=== PATIENT | female | born 1965 | race Caucasian/White ===

== ENCOUNTER 2018-01-09 08:43 | Day surgery (SDC) | payer BC ==
[2018-01-05 10:28] VITALS: BMI 28.3
[~2018-01-09 08:43] MED LIST: LACTATED RINGERS 1,000 ML IV SCH; LIDOCAINE 1% 20 ML VIAL (10MG/ML) FOR IV START INTRADERMA PRN
[2018-01-09 09:59] VITALS: RESP 16; TEMP 97.9
[2018-01-09] MEDS ORDERED: LIDOCAINE 1% 20 ML VIAL (10MG/ML) FOR IV START INTRADERMA ONE (10:07)
[2018-01-09] MEDS ORDERED: LIDOCAINE 1% INJ 10MG/ML (20 ML MDV) ONE (11:02)
[2018-01-09] MEDS ORDERED: PROPOFOL 10 MG/ML 20 ML VIAL IV ONE (11:02)
--- NOTE | 2018-01-09 11:33 | P.PCN ---
Date of Procedure: 01/09/18 Procedure(s) Performed: Procedure: Colonoscopy and polypectomy. Preoperative diagnosis: Screening for colon cancer. Postoperative diagnosis: 1. Small sigmoid polyp snared but no large polyps or cancer. 2. Sigmoid diverticulosis with no evidence of acute diverticulitis or strictures. Preparation: HalfLytely prep. Sedation: Was provided by anesthesia. Brief clinical history: The patient is a 52-year-old female who is scheduled for this evaluation for screening for neoplasia age being her risk factor. The patient has no abdominal complaints, bleeding or anemia. Procedure: With the patient on her left lateral decubitus position and after informed consent and adequate sedation, the perianal area was inspected and it did not show any fissures or fistulas. There were no masses felt on digital rectal examination. The Olympus CFQ 160L video colonoscope was then inserted in the rectum in the usual fashion and advanced to the cecum. There was a small polyp in the distal sigmoid which I snared and retrieved by suction but there were no large polyps or tumors. There was sigmoid diverticulosis noted with multiple scattered diverticular orifices with no evidence of acute diverticulitis or strictures. The exam to the cecum was, otherwise, normal. I retroflexed the endoscope in the rectum before the endoscope was withdrawn. The patient tolerated the procedure well. Plan: The patient was reassured. Will await pathology results. I anticipate repeating her exam in 5 years. Discussed dietary measures. She will follow up with you as planned.
[2018-01-09 11:46] VITALS: BP 135/83; PULSE 88
== END 2018-01-09 12:16 | disposition home or self-care (01) ==
LOC: ORWHC2ENDO 08:43
DX: Z12.11 Encounter for screening for malignant neoplasm of colon (principal); D12.5 Benign neoplasm of sigmoid colon; K57.30 Diverticulosis of large intestine without perforation or abscess without bleeding; I10 Essential (primary) hypertension; Z72.0 Tobacco use; Z79.899 Other long term (current) drug therapy
CPT/HCPCS: 88305; 45385; J2001; J2704

== ENCOUNTER → 2018-01-17 | Outpatient (CLI) | payer BC ==
--- NOTE | 2018-01-17 16:01 | US ---
EXAMINATION TYPE: US kidneys/renal and bladder DATE OF EXAM: 01/17/2018 COMPARISON: NONE CLINICAL HISTORY: R31.9 Blood in urine. EXAM MEASUREMENTS: Right Kidney: 10.1 x 4.3 x 3.9 cm Left Kidney: 10.6 x 4.9 x 4.7 cm Right Kidney: No hydronephrosis or masses seen Left Kidney: No hydronephrosis or masses seen Bladder: Solid dependent elongated mass visualized with vascularity measuring 1.3 x 1.8 x 2.3 cm. Thi s is nonmobile as the patient was instructed to change positions. Bilateral Jets seen: Yes IMPRESSION: Findings suspicious for urinary bladder neoplasm along the posterior right paracentral urinary bladde r wall measuring up to 2.3 cm with no current resultant ostial obstruction as there is no right hydro nephrosis. Findings were communicating to the ordering physician's office by the pet care associate after th e examination and discussion with myself (Dr. Parra).
== END | disposition home or self-care (01) ==
LOC: RADUSWWP 12:45
PROVIDERS: ATTEND Family Medicine
DX: R31.9 Hematuria, unspecified (principal)
CPT/HCPCS: 76770

== ENCOUNTER → 2020-10-01 | Outpatient (CLI) | payer BC | END | disposition home or self-care (01) | CPT/HCPCS: 76770 ==

== ENCOUNTER → 2022-08-25 | Outpatient (CLI) | payer BC ==
--- NOTE | 2022-08-25 08:56 | CTL ---
EXAMINATION TYPE: CT Low Dose Lung DATE OF EXAM ORDERED: 08/25/2022 HISTORY: detention tobacco use. Lung cancer screening CT DLP: 77.[address] CTDI: 2.3 mGy Automated exposure control for dose reduction was used. SCREENING VISIT: Baseline COMPARISON: None TECHNIQUE: Low dose computed tomography scan was performed through the chest at 1 mm thick sections a nd reconstructed images in multiple planes at 1 mm and [address] DIAGNOSTIC QUALITY: Satisfactory FINDINGS: LUNG NODULES: None. LUNGS: COPD: Severity: [id number] Fibrosis: Severity: None Lymph nodes: None Other findings: None RIGHT PLEURAL SPACE: Effusion: None Calcification: None Thickening: None Pneumothorax: None LEFT PLEURAL SPACE: Effusion: None Calcification: None Thickening: None Pneumothorax: None HEART: Heart Size: Normal Coronary Calcification: Mild to moderate Pericardial Effusion: None OTHER FINDINGS: Upper abdomen: None Bony thorax: None Supraclavicular region: None Other: None IMPRESSION: Mild to moderate emphysematous change without suspicious pulmonary nodules. CT LUNG RAD AND CT CHEST RECOMMENDATION: Lung-Rad 1 Negative: Continue annual screening with LDCT in 12 months. S Modifier (other clinically significant findings): None
== END | disposition home or self-care (01) ==
LOC: RADCTMAIN 08:10
PROVIDERS: ATTEND Family Medicine
DX: Z12.2 Encounter for screening for malignant neoplasm of respiratory organs (principal); J43.9 Emphysema, unspecified; F17.210 Nicotine dependence, cigarettes, uncomplicated; R59.0 Localized enlarged lymph nodes
CPT/HCPCS: 71271

== ENCOUNTER → 2022-08-30 | Outpatient (CLI) | payer BC ==
--- NOTE | 2022-08-30 10:36 | US ---
EXAMINATION TYPE: US abdomen limited DATE OF EXAM: 08/30/2022 COMPARISON: Renal ultrasound 10/01/2020 CLINICAL INDICATION: Female, 57 years old with history of R17 UNSPECIFIED JAUNDICE; Abnormal labs. No pain. TECHNIQUE: Multiple sonographic images of the right upper quadrant are obtained. FINDINGS: EXAM MEASUREMENTS: Liver Length: 17.5 cm Gallbladder Wall: 0.2 cm CBD: 0.2 cm Right Kidney: 10.5 x 4.6 x 4.1 cm Pancreas: Tail obscured by overlying bowel gas. Main pancreatic duct = 1.0 mm. Echogenic in appear ance. Liver: wnl Gallbladder: No stones seen Evidence for sonographic Lucero's sign: neg CBD: wnl Right Kidney: No hydronephrosis or masses seen The visualized portion of the pancreas are unremarkable. The tail is obscured by overlying bowel gas. Liver is unremarkable without evidence of focal lesion. Gallbladder is unremarkable without evidence of cholelithiasis, wall thickening, or pericholecystic fluid. Per merry go round attendant, negative sonographic Lucero sign. Common bile duct is within normal limits. Right kidney is unremarkable without evidence of hydronephrosis, shadowing calculi, or solid masses. IMPRESSION: No acute process.
== END | disposition home or self-care (01) ==
LOC: RADUSWWP 10:08
PROVIDERS: ATTEND Family Medicine
DX: R17 Unspecified jaundice (principal)
CPT/HCPCS: 76705